=== PATIENT | female | born 1995 | race Caucasian/White ===

== ENCOUNTER 2019-04-29 15:56 | Emergency (ER) | payer SELFPAY ==
[~2019-04-29] VITALS: Ht 165.1 cm; Wt 63.6 kg
[2019-04-29 16:38] VITALS: BP 133/83; PULSE 91; TEMP 98.2
[2019-04-29] MEDS ORDERED: CAMILA0.35 MG PO (19:39)
[2019-04-29] MEDS ORDERED: ATIVAN 0.50.5 MG/TAB PO (21:54)
== END 2019-04-29 18:06 | disposition left against medical advice (07) ==
LOC: COL.ER 15:56
DX: R06.00 Dyspnea, unspecified (principal)

== ENCOUNTER 2019-04-29 18:59 | Emergency (ER) | payer SELFPAY ==
[~2019-04-29] VITALS: Ht 165.1 cm; Wt 63.6 kg
[2019-04-29 19:06] VITALS: BP 166/72; TEMP 98.2
[2019-04-29] MEDS ORDERED: CAMILA0.35 MG PO (19:39)
[2019-04-29 20:19] LABS: BASO # 0.1 (0.0-0.2); BASO % 0.9 % (0.0-2.0); EOS % 0.6 % (0-4.0); GRAN # 3.3 (1.4-6.5); GRAN % 49.9 % (42.2-75.2); HEMATOCRIT 37.9 % (37.0-47.0); HEMOGLOBIN 12.9 g/dl (12.5-16.0); LYMPH # 2.7 (1.2-3.4); LYMPH % 41.4 % (20.0-51.0); MEAN CELL VOLUME 95 fl (80.0-100.0); MEAN CORPUSCULAR HEMOGLOBIN 32 pg (27.0-31.0); MEAN CORPUSCULAR HGB CONC 34 g/dl (33.0-37.0); MEAN PLATELET VOLUME 9.8 fl (7.4-10.4); MONO # 0.5 (0.1-0.6); PLATELET COUNT 302 K/mm3 (130-400); RED BLOOD COUNT 3.99 M/mm3 (4.10-5.30); REDCELL DISTRIBUTION WIDTH-CV 13.9 % (11.5-14.5)
[2019-04-29 20:32] LABS: ALANINE AMINOTRANSFERASE 16 U/L (9-52); ALBUMIN 4.3 gm/dL (3.5-5.0); ALKALINE PHOSPHATASE 73 U/L (50-136); ANION GAP 12 mmol/L (7-16); AST,SGOT 27 U/L (15-37); BILIRUBIN,TOTAL 0.7 mg/dL (0.0-1.0); BLOOD UREA NITROGEN 12 mg/dL (7-17); CALCIUM 9.5 mg/dL (8.4-10.2); CARBON DIOXIDE 21 mmol/L (22-30); CHLORIDE 105 mmol/L (98-107); CREATININE, serum 0.64 (0.52-1.25); GLUCOSE 80 mg/dL (74-106); LIPASE 74 U/L (23-300); POTASSIUM 3.9 mmol/L (3.4-5.0); SODIUM 138 mmol/L (137-145); TOTAL PROTEIN 8.1 gm/dL (6.4-8.2)
[2019-04-29 20:36] LABS: C-REACTIVE PROTEIN < 0.5 mg/dL (0.0-0.9)
[2019-04-29 20:43] LABS: TROPONIN-I < 0.012 ng/mL (0.000-0.035)
[2019-04-29] MEDS ORDERED: ATIVAN 0.50.5 MG/TAB PO (21:54)
[2019-04-29 22:19] VITALS: PULSE 90
== END 2019-04-29 22:20 | disposition home or self-care (01) ==
LOC: COL.ER 18:59
PROVIDERS: Emergency Medicine
DX: R06.00 Dyspnea, unspecified (principal); F17.210 Nicotine dependence, cigarettes, uncomplicated

== ENCOUNTER 2021-06-06 15:11 | Emergency (ER) | payer BC ==
[~2021-06-06] VITALS: Ht 165.1 cm; Wt 65.9 kg
[~2021-06-06 15:11] MED LIST: ATIVAN 0.50.5 MG/TAB PO; CAMILA0.35 MG PO
[2021-06-06 16:00] VITALS: TEMP 98.2
[2021-06-06 16:46] LABS: BASO # 0.1 (0.0-0.2); BASO % 0.5 % (0.0-2.0); EOS # 0.1 (0.0-0.7); EOS % 0.5 % (0-4.0); GRAN # 9.7 (1.4-6.5); GRAN % 70.4 % (42.2-75.2); HEMATOCRIT 40.8 % (37.0-47.0); HEMOGLOBIN 14.2 g/dl (12.5-16.0); LYMPH # 2.9 (1.2-3.4); MEAN CELL VOLUME 99 fl (80.0-100.0); MEAN CORPUSCULAR HEMOGLOBIN 34 pg (27.0-31.0); MEAN CORPUSCULAR HGB CONC 35 g/dl (33.0-37.0); MEAN PLATELET VOLUME 9.9 fl (7.4-10.4); MONO % 7.2 % (1.7-9.3); PLATELET COUNT 332 K/mm3 (130-400); RED BLOOD COUNT 4.14 M/mm3 (4.10-5.30); REDCELL DISTRIBUTION WIDTH-CV 12.6 % (11.5-14.5)
[2021-06-06 16:58] LABS: ALBUMIN 5.1 gm/dL (3.5-5.0); BILIRUBIN,TOTAL 0.9 mg/dL (0.0-1.0); CALCIUM 10.1 mg/dL (8.4-10.2); CREATININE, serum 0.68 (0.52-1.25); POTASSIUM 3.7 mmol/L (3.4-5.0); TOTAL PROTEIN 8.9 gm/dL (6.4-8.2)
[2021-06-06 17:27] LABS: THYROID STIMULATING HORMONE 0.659 uIU/mL (0.465-4.680)
[2021-06-06] MEDS ORDERED: CARAFATE S1 GM/10 ML PO (19:23)
[2021-06-06] MEDS ORDERED: ZOFRAN ODT4 MG PO (19:23)
[2021-06-06] MEDS ORDERED: ATIVAN 0.50.5 MG/TAB PO (19:23)
[2021-06-06 19:48] LABS: C-REACTIVE PROTEIN 1.3 mg/dL (0.0-0.9)
[2021-06-06 19:58] LABS: MAGNESIUM 1.7 mg/dL (1.6-2.3)
[2021-06-06 21:05] VITALS: BP 118/66; PULSE 82
== END 2021-06-06 21:05 | disposition home or self-care (01) ==
LOC: COL.ER 15:11
PROVIDERS: Nurse Practitioner
DX: F10.239 Alcohol dependence with withdrawal, unspecified (principal); R10.13 Epigastric pain; F17.210 Nicotine dependence, cigarettes, uncomplicated
CPT/HCPCS: J2060; J2270; J2405; J7030; Q9967